=== PATIENT | female | born 1965 | race Caucasian/White ===

== ENCOUNTER → 2018-08-22 | Day surgery (SDC) | payer OTHER ==
--- NOTE | 2018-08-25 14:14 | OP ---
DATE OF OPERATION: 08/22/2018 PREOPERATIVE DIAGNOSIS: Left breast mass 3 o'clock retroareolar. POSTOPERATIVE DIAGNOSIS: Left breast mass 3 o'clock retroareolar. PROCEDURE: Left breast ultrasound-guided core biopsy with clip placement. ANESTHESIA: Local. ATTENDING SURGEON: Palu Mclain MD ESTIMATED BLOOD LOSS: Minimal. COMPLICATIONS: None. DESCRIPTION OF PROCEDURE: The patient was made aware of the risks and benefits of the procedure and consented. She was placed in a supine position. Under sterile conditions with 1% lidocaine for local anesthesia, a small amarjit was made in the skin. Using a 10-gauge suction biopsy device via lateral approach under ultrasound guidance, 4 cores were obtained and submitted to Pathology. Likewise, under ultrasound guidance, a bowtie clip was placed into the biopsy region. Well tolerated by patient. Steri-Strip and a sterile bandage was applied. We will contact her with the results. PAUL MCLAIN M.D. [id number]
--- NOTE | 2018-08-25 15:09 | PATH ---
Surgical Pathology Report Patient Name: RYDER VIEIRA [facility]. Rec. #: [id number] /Age/Gender: 1965 (Age: 53) / F Account: [id number] Location: [facility] Taken: 08/22/2018 Received: 08/22/2018 Reported: 08/25/2018 Physicians: Paul Mclain M.D. Specimen(s) Received LEFT BREAST CORE BIOPSY 3:00 RETRO Clinical History Nonpalpable lesion Ultrasound findings: Highly suspicious /malignant Final Diagnosis BREAST, LEFT, RETRO 3:00, CORE BIOPSY: BENIGN BREAST TISSUE SHOWING FIBROADENOMA. Electronically Signed Margot Roberson M.D. Gross Description Received in formalin labeled "left breast biopsy 3:00 retro," are 5 camacho-yellow, cylindrical portions of fibroadipose tissue ranging from 0.5-1.3 cm in length and averaging 0.3 cm in diameter. The specimens are submitted in toto in one cassette. Total formalin fixation time: Approximately 6 hours /08/22/201808/22/2018
== END | disposition home or self-care (01) ==
LOC: FRADUS-SUR 12:06
PROVIDERS: ATTEND Surgery Surgical Oncology
PROC: 0HBU3ZX Excision of Left Breast, Percutaneous Approach, Diagnostic (ICD-10-PCS; principal; 2018-08-22)
DX: D24.2 Benign neoplasm of left breast (principal); N63.42 Unspecified lump in left breast, subareolar
CPT/HCPCS: 19083; 87899; 88305-TC; A4648